=== PATIENT | male | born 1975 | race Caucasian/White ===

== ENCOUNTER 2021-03-24 16:19 | Inpatient (IN) | payer OTHER ==
[~2021-03-24] VITALS: Ht 182.9 cm; Wt 101.6 kg
--- NOTE | ~2021-03-24 | O ---
[facility] [place] [address] OPERATIVE REPORT Name: TY VICENTE Room #: 456-P ADM IN M.R.#: [id number] Admission: 03/24/21 Attend Phys: Edilson Hemphill, Discharge: Date of : 79 Report #: [id number] THIS REPORT FOR: cc: Lopez Morales MD, Christopher B. MD Patterson, Jonathan D. MD ~ DATE OF SERVICE: 03/25/2021 DATE OF SERVICE: 03/25/2021. PREOPERATIVE DIAGNOSIS: Acute cholecystitis. POSTOPERATIVE DIAGNOSIS: Acute cholecystitis. OPERATION: Laparoscopic cholecystectomy with intraoperative cholangiogram. SURGEON: Edilson Hemphill MD ANESTHESIA: General. ESTIMATED BLOOD LOSS: Minimal. SPECIMENS: Gallbladder. DRAIN: A 10-Northern Irish round. DESCRIPTION OF PROCEDURE: After informed consent was obtained, the patient was brought to the operating room and placed supine. SCDs were placed and working, preoperative antibiotics were administered, general anesthesia was induced. The abdomen was prepped and draped in the usual sterile fashion. A 10 mm incision was made below the umbilicus. Fascia was incised and a trocar was placed. Pneumoperitoneum was established. Three right upper quadrant 5 mm ports were placed. Gallbladder was grasped at the fundus and retracted cephalad. Infundibulum was grasped and retracted laterally. I dissected out the cystic duct and the cystic artery and the cystic plate. The gallbladder was severely inflamed consistent with acute cholecystitis. There were gangrenous patches on the gallbladder. The cystic duct was clipped. A ductotomy was made. Cholangiogram catheter was inserted. Cholangiogram was performed. This demonstrated filling of the cystic duct, common bile duct, common hepatic duct, bifurcation of the hepatics, smooth flow in the duodenum without any filling defects. This was normal. The catheter was removed. The cystic duct and artery were clipped and ligated leaving a clip and a PDS Endoloop on the remaining duct and a clip on the remaining artery. Gallbladder was then taken off the liver bed with [facility] [address] [place] [address] OPERATIVE REPORT Name: TY VICENTE Room #: 456-P [facility] IN M.R.#: [id number] Admission: 03/24/21 Attend Phys: Edilson Hemphill, Discharge: Date of : 79 Report #: [id number] electrocautery. It was placed into an Endopouch and removed. Fascia was closed with a [id number] 0 Vicryl. Skin was closed with 4-0 Monocryl. A 10-Northern Irish drain was placed into one on the right upper quadrant ports and placed in the gallbladder fossa prior to closure. This was to suck out the remaining purulent material. COMPLICATIONS: None. DISPOSITION: The patient was taken to recovery in satisfactory condition. By: [id number] Edilson Hemphill MD /nt
[2021-03-24 16:34] VITALS: BP 136/87
[2021-03-24 17:34] LABS: RDW 13.7 % (10.5-14.5)
[2021-03-24 17:39] LABS: ABSOLUTE NEUTROPHILS 10.3 thou/uL (1.4-8.2); BASOPHILS 0.7 % (0.0-2.0); EOSINOPHILS 0.6 % (0.0-3.0); HEMATOCRIT 49.1 % (42.0-52.0); HEMOGLOBIN 16.4 gm/dL (14.0-18.0); LYMPHOCYTES 17.1 % (24.0-44.0); MCH 29.3 pg (26.0-34.0); MCHC 33.4 g/dL (28.0-37.0); MCV 87.7 fL (80.0-100.0); MONOCYTES 9.3 % (1.0-8.0); POLYS 72.3 % (36.0-66.0); RBC 5.61 mil/uL (4.50-6.00); WBC 14.3 thou/uL (4.0-11.0)
[2021-03-24 17:41] LABS: PLATELET COUNT 267 thou/uL (150-400)
[2021-03-24 17:42] LABS: CALCIUM 9.4 mg/dL (8.5-10.1); CREATININE 1.2 mg/dL (0.7-1.3); POTASSIUM 3.9 mmol/L (3.5-5.1)
[2021-03-24 17:48] LABS: ALBUMIN 4.2 g/dL (3.4-5.0); TOTAL BILIRUBIN 1.3 mg/dL (0.2-1.0); TOTAL PROTEIN 8.5 g/dL (6.4-8.2)
[2021-03-24 23:22] VITALS: BP 122/72
[2021-03-24] MEDS ORDERED: CLARITIN10 M3 PO (23:30)
[2021-03-24] MEDS ORDERED: FLONASE 0.05%50 MCG NARES (23:30)
[2021-03-24] MEDS ORDERED: ACETAMINOPHEN325 M1 PO (23:32)
--- NOTE | 2021-03-25 01:39 | NUR ---
Pt admitted from ED with acute cholecystitis at 2230. A/OX4,VSS. C/o abd pain 08/18 denies need for pain meds.C/o N/V medicated per EMAR with relief reported. Up ad irina w/o problems,encouraged to call for help as needed and verbalizes understanding. NPO from midnight,IVF ordered and infusing via LFA,will continue to monitor pt.
[2021-03-25 05:05] VITALS: BP 129/75
[2021-03-25 08:02] VITALS: BP 109/58
[2021-03-25 16:10] VITALS: BP 125/69
[2021-03-25 16:25] VITALS: BP 119/61
[2021-03-25 16:53] VITALS: BP 121/74
--- NOTE | 2021-03-25 18:52 | NUR ---
RN ASSUMED PT'S CARE AT 0700AM, PT IS A&OX4, PT HAS LAPAROSCOPIC CHOLECYSTECTOMY TODAY, PT'S VS ARE STABLE, PT STARTS EAT REGULAR DIET AT DINNER TIME, PT DENIES PAIN AND N/V AFTER BACK FROM SURGRY, PT'S R SUDARSHAN DRAINAGE TUBE HAS 80ML ,
[2021-03-25 19:53] VITALS: BP 120/73
--- NOTE | 2021-03-25 23:57 | NUR ---
Assumed care on 03/25/21 @ 1999, in bed, family @ bedside. denies n/v, rates pain @ 10/18, [id number] 2 tabs provided @ 2101 as per PRN orders, upon follow up assessment, noted to be sleeping. NS running @ 100 via Left Fore Arm. 4 Lap sites dressings c/d/I. SUDARSHAN drain has a small amount of pink fluid. Able to voice needs and wants. Call light within reach. Will continue to observe for safety and comfort as per unit protocol.
[2021-03-26 07:24] VITALS: BP 134/36
[2021-03-26] MEDS ORDERED: NORCO5 PO (11:02)
[2021-03-26 11:30] VITALS: BP 134/36
--- NOTE | 2021-03-26 11:43 | NUR ---
PATIENT ASSESSED AND AND STATED NO PAIN DISCOMFORT. BEING DISCHARGED HOME - TRANSPORTING. TRAINED ON SUDARSHAN DRAIN PROCEDURE. BREATHING FINE WITHOUT NC - ASSESSED WOUNDS AND HEALING WELL.
--- NOTE | 2021-03-28 10:07 | PATH ---
[facility] [address] [place] [address] PATHOLOGY RPT PROCEDURE Name: TY VICENTE Room #: 456-P [facility] IN M.R.#: [id number] Admission: 03/24/21 Date of : 79 Discharge: 03/26/21 Report #: [id number] Path Case #: [id number] [facility] Accession Number: [id number] . 01 Material submitted: . gallbladder - GALLBLADDER . 01 Clinical history: . LAPAROSCOPIC CHOLECYSTECTOMY W/ GRAM CHOLECYSTITIS . 02 Diagnosis: Gallbladder, cholecystectomy: - Acute gangrenous cholecystitis with cholelithiasis. - Negative for malignancy. . (ANK:mml; 03/27/2021) QL 03/27/2021 1142 Local . 02 Electronically signed: . Sarah Matias MD, Pathologist NPI- [id number] . 01 Gross description: . Fixative: Formalin Labeled: Gallbladder Specimen received: Previously opened gallbladder Dimensions: 10.9 x 4.1 x 3.0 cm Serosa: Deville-james Lymph node: Not identified Mucosa: Velvety, red-brown to light brown Average wall thickness: 0.2 cm Calculi: Present displaying a bright yellow and bosselated appearance Abnormalities: None identified . Drop Shipment Clerk body, fundus, and the cystic duct margin in cassette A1. (CAA; 03/26/2021) QA/[facility] 03/26/2021 0927 Local . 02 Pathologist provided ICD-10: K80.00 . 02 CPT . 284885 Specimen Comment: A courtesy copy of this report has been sent to [phone] Specimen Comment: [id number] [address] PATHOLOGY RPT PROCEDURE Name: TY VICENTE Room #: 456-P DIS IN M.R.#: [id number] Admission: 03/24/21 Date of : 79 Discharge: 03/26/21 Report #: [id number] Path Case #: [id number] Specimen Comment: Report sent to / DR RESTREPO Specimen Comment: A duplicate report has been generated due to demographic updates. Performed at: 01 [facility] [address] [id number] MD Allen Black MD Phone: [phone] Performed at: [address] [id number] MD Nidia Smith MD Phone: [phone]
== END 2021-03-26 12:58 | disposition home or self-care (01) | DRG 419 ==
LOC: ER 16:19 → 4W 21:02 → EROBS 21:02 → 4W 22:33
PROVIDERS: Emergency Medicine; ADMIT Surgery; ATTEND Surgery
PROC: BF101ZZ Fluoroscopy of Bile Ducts using Low Osmolar Contrast (ICD-10-PCS; principal; 2021-03-25)
PROC: 0FT44ZZ Resection of Gallbladder, Percutaneous Endoscopic Approach (ICD-10-PCS; principal; 2021-03-25)
DX: K81.0 Acute cholecystitis (principal); R74.01 Elevation of levels of liver transaminase levels; Z88.8 Allergy status to other drugs, medicaments and biological substances; Z79.899 Other long term (current) drug therapy; I10 Essential (primary) hypertension; Z87.891 Personal history of nicotine dependence; Z20.822 Contact with and (suspected) exposure to COVID-19; K27.9 Peptic ulcer, site unspecified, unspecified as acute or chronic, without hemorrhage or perforation; D72.829 Elevated white blood cell count, unspecified
CPT/HCPCS: 10040; 50010; 50101; 50411; 50555; 51297; 51489; 52265; 52266; 53307; 53312; 53314; 55245; 56462; 56525; 56526; 56527; 58574; 58902; 62110; 62900; 70005